=== PATIENT | male | born 1970 | race Caucasian/White ===

== ENCOUNTER 2021-09-28 10:53 | Outpatient (REF) | payer OTHER, SELFPAY ==
[2021-09-28 15:40] LABS: HCT 45.3 % (40.0-50.0); HGB 15.3 g/dL (13.5-17.5); MCH 30.7 pg (27.0-33.0); MCHC 33.8 % (32.0-36.0); MCV 91 fL (80-95); MPV 10.3 fL (8.0-11.0); Platelet Count 221 10^3/uL (130-400); RBC 4.98 10^6/uL (4.36-5.78); RDW 12.7 % (11.8-14.1); RDW-SD 42.1 fL; WBC 7.06 10^3/uL (4.4-10.8)
[2021-09-28 16:13] LABS: ALT 110 U/L (16-63); AST 58 U/L (15-37); Albumin 3.9 g/dL (3.4-5.0); Alkaline Phosphatase 66 U/L (46-116); Anion Gap 10.7 mmol/L (3-11); BUN 17 mg/dL (7-18); Bilirubin, Total 0.6 mg/dL (0.2-1.0); CO2 27.3 mmol/L (21.0-32.0); Calcium 9.6 mg/dL (8.5-10.1); Calculated LDL 197 mg/dL (<100); Chloride 100 mmol/L (98-107); Cholesterol 302 mg/dL (<200); Glucose 107 mg/dL (74-106); HDL Cholesterol 82 mg/dL (40-60); Potassium 4.3 mmol/L (3.5-5.1); Sodium 138 mmol/L (136-145); TSH (W/Ref FT4) 1.92 uIU/mL (0.36-3.74); Total Protein 7.9 g/dL (6.4-8.2); Triglyceride 115 mg/dL (<150)
[2021-09-28 16:27] LABS: Vitamin D 25 Total 19.1 ng/mL (30-100)
== END 2021-09-28 10:54 | disposition home or self-care (01) ==
LOC: NCHCN 10:53
PROVIDERS: Visit Provider Nurse Practitioner Family
DX: R53.83 Other fatigue (principal); E55.9 Vitamin D deficiency, unspecified; F10.20 Alcohol dependence, uncomplicated; F17.220 Nicotine dependence, chewing tobacco, uncomplicated; R06.83 Snoring
CPT/HCPCS: 80053; 80061; 82306; 85027; 84443

== ENCOUNTER 2022-09-19 10:14 | Outpatient (REF) | payer OTHER, SELFPAY ==
[2022-09-19 16:35] LABS: ALT 82 U/L (16-63); AST 48 U/L (15-37); Albumin 3.9 g/dL (3.4-5.0); Alkaline Phosphatase 71 U/L (46-116); Anion Gap 10.3 mmol/L (3-11); BUN 13 mg/dL (7-18); Bilirubin, Total 0.7 mg/dL (0.2-1.0); CO2 27.7 mmol/L (21.0-32.0); Calcium 9.1 mg/dL (8.5-10.1); Calculated LDL 192 mg/dL (<100); Chloride 103 mmol/L (98-107); Cholesterol 292 mg/dL (<200); Estimated GFR 91.69 (mL/min/1.73m2); Glucose 109 mg/dL (74-106); HDL Cholesterol 71 mg/dL (40-60); Potassium 4.4 mmol/L (3.5-5.1); Sodium 141 mmol/L (136-145); Total Protein 7.7 g/dL (6.4-8.2); Triglyceride 146 mg/dL (<150)
[2022-09-19 17:25] LABS: GGT 102 U/L (15-85)
== END 2022-09-19 10:15 | disposition home or self-care (01) ==
LOC: NCHCN 10:14
PROVIDERS: Visit Provider Nurse Practitioner Family
DX: Z00.00 Encounter for general adult medical examination without abnormal findings (principal); E78.5 Hyperlipidemia, unspecified; R79.89 Other specified abnormal findings of blood chemistry
CPT/HCPCS: 80053; 80061; 82977

== ENCOUNTER 2023-05-29 12:33 | Outpatient (REF) | payer OTHER, SELFPAY ==
[2023-05-29 15:24] LABS: Abs Immature Grans 0.03 10^3/uL (0.0-0.06); Absolute Basophil Count 0.06 10^3/uL (0.0-0.2); Absolute Eosinophil Count 0.08 10^3/uL (0.0-0.7); Absolute Lymphocyte Count 1.82 10^3/uL (1.2-3.4); Absolute Monocyte Count 0.64 10^3/uL (0.1-0.8); Absolute Neutrophil Count 5.09 10^3/uL (1.2-6.7); Basophils % 0.8; HCT 45.9 % (40.0-50.0); HGB 15.4 g/dL (13.5-17.5); Immature Grans % 0.4; Lymphocytes % 23.6; MCH 30.3 pg (27.0-33.0); MCHC 33.6 % (32.0-36.0); MCV 90 fL (80-95); MPV 9.9 fL (8.0-11.0); Monocytes % 8.3; Neutrophils % 65.9; Platelet Count 252 10^3/uL (130-400); RBC 5.09 10^6/uL (4.36-5.78); RDW 12.1 % (11.8-14.1); RDW-SD 40.3 fL; WBC 7.72 10^3/uL (4.4-10.8)
[2023-05-29 15:50] LABS: ALT 54 U/L (16-63); AST 31 U/L (15-37); Albumin 3.9 g/dL (3.4-5.0); Alkaline Phosphatase 67 U/L (46-116); Anion Gap 10.9 mmol/L (3-11); BUN 17 mg/dL (7-18); Bilirubin, Total 0.6 mg/dL (0.2-1.0); CO2 26.1 mmol/L (21.0-32.0); CREATININE 1.1 mg/dL (0.70-1.30); Calcium 9.5 mg/dL (8.5-10.1); Calculated LDL 179 mg/dL (<100); Chloride 104 mmol/L (98-107); Cholesterol 271 mg/dL (<200); Estimated GFR 81.28 (mL/min/1.73m2); Glucose 118 mg/dL (74-106); HDL Cholesterol 75 mg/dL (40-60); Potassium 4.5 mmol/L (3.5-5.1); Sodium 141 mmol/L (136-145); Triglyceride 85 mg/dL (<150)
[2023-05-30 09:17] LABS: Lyme Ab w Rflx to Lyme Confirm Negative (Negative)
== END 2023-05-29 12:34 | disposition home or self-care (01) ==
LOC: NCHCN 12:33
PROVIDERS: Referring Provider Nurse Practitioner Family; Visit Provider Nurse Practitioner Family
DX: E78.5 Hyperlipidemia, unspecified (principal); M25.59 Pain in other specified joint
CPT/HCPCS: 80053; 80061; 85025; 86618

== ENCOUNTER 2024-12-11 08:14 | Day surgery (SDC) | payer OTHER, SELFPAY ==
--- NOTE | 2024-12-10 13:45 | W.PM.DSUDISC ---
Date of service: 12/11/24 Discharge Plan Disposition Patient Disposition: Home Condition: Good Discharge Details Reason For Visit: Screening colonoscopy Attending Provider: Alfonso Horvath Primary Care Provider: JESIKA CAMP Home Meds and New Rx's Prescriptions: Continued Skyrizi 150 mg/mL syringe 150 mg subcut Q12W Discontinued bisacodyl [Dulcolax (bisacodyl)] 5 mg tablet,delayed release (DR/EC) 5 mg PO ONCE Qty: 4 0RF Rx Instructions: Take per colonoscopy instructions provided by ordering providers office polyethylene glycol 3350 17 gram/dose powder 17 g PO ONCE Qty: 238 0RF Rx Instructions: Take per colonoscopy instructions provided by ordering providers office Discharge Instructions Instructions: Colon polyps, Diverticulosis Additional Instructions: Moe, it was great meeting you today. I hope you are comfortable through the procedure and feel well as you transition home. Things went very smoothly. Your prep was outstanding, and I could see everything fine. I did find, and removed, 2 polyps today. These are both quite small, and to the naked eye there is nothing to worry about year. As a mention, I removed both of these and I will send them both to the pathologist for them to review. The pathology report will take about a week or 2 to get back. Once my office has the details of that, I will be in touch with recommendations for future colonoscopies. Incidentally, you also have a little bit of diverticulosis. Diverticula are little weak spots in the muscular layer of the colon wall. These cause a little pockets or pouches to form. Those are called diverticulum. These can get infected or inflamed and cause pain. However, most patients I perform colonoscopies and have them, and are never at all bothered by them. I hope yours never bother you. Have attached a little bit of information here about diverticulosis as well as colon rectal polyps. If you need anything or have any questions at all, please do not hesitate to ask. Otherwise, my office will be in touch once we have the report. 1. If tolerated, consume a soft, low fiber diet for 1-2 days. 2[address] Do not drive, drink alcohol, operate machinery, make critical decisions, or do activities that require coordination or balance for 24 hours. 3. Because air was put into your colon during the procedure, expelling air from your rectum (passing gas or farting) is normal. 4. You may not have a bowel movement for 1-3 days because of the colonoscopy prep. This is normal. 5. Go directly to the emergency room if you notice any of the following: Develop chills (warm to touch), or if you have a thermometer and your temperature is above 101 Difficulty breathing or difficultly swallowing Persistent vomiting Severe abdominal pain, other than gas cramps Severe chest pain Black, tarry stools Any bleeding ? exceeding one tablespoon 6. Call your physician if the site where your intravenous was started becomes red, swollen, painful, and warm to touch. 7. Your physician has reviewed your pre-procedure medications. Please continue to take those medications as previously ordered. You will be given specific information/education regarding any changes to your medications before leaving. Activity:: Activity as Tolerated Diet:: As Tolerated Discharge Orders Discharge Orders: Discharge Order (Routine); Ordered 12/10/24 Ordered By: Alfonso Horvath DS: Diagnosis Discharge Diagnosis (1) Encounter for screening colonoscopy: Status: Acute
--- NOTE | 2024-12-10 13:46 | W.COLOREPORT ---
Date of service: 12/11/24 Time of Service: 10:51 Colonoscopy Report Date of procedure: 12/11/24 Pre-op diagnosis general: Screening colonoscopy Post-op diagnosis procedure note: other (Colon polyps, diverticulosis) Procedure: Colonoscopy with polypectomy Surgeon: Alfonso Horvath Anesthesia Type: General:No Airway Estimated blood loss (mL): 5 Pathology: other ( 0.25 cm flat polyp at 65 cm, 0.25 cm flat polyp at 45 cm) Complications: None Disposition: same day Indications: Moe is a 54-year-old male who needs a screening colonoscopy Prep: Miralax/Dulcolax Procedure Start Time: 10:16 Procedure End Time: 10:37 Retraction Time: 14 Findings: Sigmoid diverticulosis, 0.25 cm flat polyp at 65 cm, 0.25 cm flat polyp at 45 cm Procedure Description: After the induction of pain at its anesthesia, and with the patient in left lateral decubitus position, I began by performing an external anorectal exam.? Perineum and skin were normal, as was the anal verge.? There was no evidence of external hemorrhoids.? Next, I performed a digital rectal exam.? I did not appreciate any abnormal findings.? Next, I advanced a colonoscope into the rectal vault.? I performed retroflexion.? This appeared normal.? Using irrigation, I then advanced the colonoscope beyond the rectal folds and into the sigmoid colon before advancing towards the cecum. The scope was noted to be in the cecum by identification of the ileocecal valve and appendiceal orifice.? I then began withdrawing the colonoscope using repeated irrigation as necessary for full evaluation of the colonic mucosa. ?Around 65 cm from the anal verge was a 0.25 cm flat polyp. This was removed with cold forcep polypectomy. There was minimal bleeding. Similarly, another 0.25 cm flat polyp was found around 45 cm past the anal verge. This was also removed with cold forceps without any issues. There were some occasional narrow mouth sigmoid diverticula. Once the scope was withdrawn to the level of the rectum, great care was taken to examine portions of the rectal folds.? Finally, the scope was withdrawn and the patient was brought to the same-day surgery recovery unit as the anesthetic wore off. ?The findings and instructions were shared with the patient prior to discharge. [place] Bowel Prep [place] Bowel Prep Right Colon: 3 Left Colon: 3 Transverse Colon: 3 Total Score: 9
[2024-12-11 08:18] VITALS: BP 149/93; PULSE 70; RESP 18; TEMP 36.2; O2SAT 95
[2024-12-11 08:42] VITALS: BP 149/93; PULSE 70; RESP 18; TEMP 36.2; O2SAT 95
[2024-12-11] MEDS: Lactated Ringers 1,000 ML 80 ML IV (08:49)
--- NOTE | 2024-12-11 09:31 | W.ANESPRE ---
General Info Date of Service Date Performed: 12/11/24 Height: 5 ft 7 in Weight: 108.9 kg Body Mass Index (BMI): 37.5 Surgical Procedure: Operation Date: 12/11/24 10:05 Proposed Procedure Side Surgeon p Josephine Horvath MD Meds Allergies and Home Medications Allergies Allergy/AdvReac Type Severity Reaction Status Date / Time acitretin (From Soriatane) Allergy Unknown Other (See Verified 12/11/24 08:37 Comment) Home Medication ?Medication ?Instructions ?Recorded risankizumab-rzaa 150 mg/mL 150 mg subcut Q12W 09/02/24 subcutaneous syringe (Skyrizi) Current Visit Medications: Current Medications Generic Name Dose Route Start Last Admin Trade Name Freq PRN Reason Stop Dose Admin Ringer's Solution 1,000 mls @ 80 mls/hr 12/11/24 06:00 12/11/24 08:49 IV 12/11/24 23:59 80 mls/hr INFUSION KEYON Administration IV Miscellaneous Supplies 1 each 12/11/24 06:00 Iv Access IV 12/11/24 23:59 DIRECTED KEYON Sodium Chloride 0 ml 12/11/24 06:00 Normal Saline Flush 10 Ml Syr IV 12/11/24 23:59 PRN PRN Sodium Chloride 0 ml 12/11/24 06:00 Normal Saline 10 Ml Vial IJ 12/11/24 23:59 DIRECTED PRN Sterile Water 0 ml 12/11/24 06:00 Water,Injection,Sterile 10 Ml Vial IJ 12/11/24 23:59 DIRECTED PRN PFSH Active Problems Active Problems: Problem Status Onset Code Encounter for screening colonoscopy Acute Z12.11 Tremor Acute R25.1 Psoriasis Chronic L40.9 Medical History Medical History Family history of thyroid cancer father Abnormal liver function test Vitamin D deficiency Multiple joint pain Seasonal allergic rhinitis Hyperlipidemia Alcohol dependence Snoring Fatigue Heartburn Chews tobacco DVT, lower extremity Tobacco Smoking/Tobacco Use Status: Current every day Tobacco Type: smokeless tobacco Alcohol Alcohol Intake: current Alcohol intake frequency: 3 or more drinks per day Alcohol type: hard liquor Substance Use Substance use: Rarely Substance use type: marijuana Details: Gummies at [facility] Vital Signs and Lab Results Vital Signs Most Recent Vital Signs in EMR: Most Recent Vital Signs Temp Pulse Resp BP Pulse Ox 36.2 C L 70 18 149/93 H 95 12/11/24 08:42 12/11/24 08:42 12/11/24 08:42 12/11/24 08:42 12/11/24 08:42 Anesthesia Assessment and Plan Anesthesia History Personal History: Unknown Anesthesia History Family History: No Family History of Anesthesia Complications Exercise Tolerance Exercise Tolerance: Metabolic Equivalents>4 Pertinent Negatives Pertinent Negatives: No Major Cardiovascular Symptoms or Complaints, No Major Pulmonary Symptoms or Complaints and No History of CVA/TIA Cardiac & Pulmonary Exam Cardiac Exam: Normal S1/S2 Heart Sounds Pulmonary Exam: Clear Bilateral Breath Sounds Implantable Cardiac Device Does patient have a Pacemaker or an ICD?: No Airway Exam Known Difficult Airway: No Mallampati Class: 3 Mouth Opening: Normal (> 3cm) Thyromental Distance: Greater than 3 cm Neck Range of Motion: Full ROM Neck Circumference: Thick Teeth Condition: Normal Dentition ASA Classification ASA Score: ASA 2 Emergency Case?: No NPO Status NPO Status: NPO Clears >2 hours, Solids >8 hours Anesthesia Plan Resuscitation Status: Full Code Anesthesia Technique: General Anesthesia Airway Planned: Natural Airway Monitors Used: Standard Monitors
[2024-12-11 09:32] VITALS: BMI 37.5
--- NOTE | 2024-12-11 10:30 | BOWEL_PTH ---
PATIENT: Moe Mcdonald LOC: TE U#:[id number] AGE/SX: 54/M ROOM: RE12/11/[address]: Alfonso Horvath MD : [id number] BED: DIS: 12/11/2024 SPEC #: [id number] RECD: 12/11/24 11:13 STATUS: SUGEY RE #: [id number] ADRIAN: 12/11/24 10:[address]: Alfonso Horvath DEPT: Surgical Specimen RECD BY: Aleyda Gonsales ENTERED: 12/11/24 11:15 SP TYPE: Bowel OTHR DR: JESIKA CAMP, STIVEN Tissues: 1 - BIOPSY BOWEL 2 - BIOPSY BOWEL Procedures: GROSS AND MICRO LEVEL 4 Comments: [id number]
[2024-12-11 10:40] VITALS: BP 147/76; PULSE 79; RESP 18; TEMP 36.6; O2SAT 95
--- NOTE | 2024-12-11 10:47 | W.ANESPOSTOP ---
Postoperative Evaluation Date, Time and Location Date Performed: 12/11/24 Time Performed: 10:47 Patient Location: Day Surgery Unit Vital Signs Most Recent Imported Vital Signs: Most Recent Vital Signs Temp Pulse Resp BP Pulse Ox 36.2 C L 70 18 149/93 H 95 12/11/24 08:42 12/11/24 08:42 12/11/24 08:42 12/11/24 08:42 12/11/24 08:42 Assessment Mental Status: Awake (Alert & Oriented to Patient Baseline) Airway and Respiratory Function: Patent airway with normal (patient baseline) respiratory exam Cardiovascular Function: Hemodynamically Stable Hydration Status: Adequately Hydrated Nausea & Vomiting: No Nausea or Vomiting Pain: Pt. Denies Any Pain Peripheral Nerve Block: Patient did not receive a nerve block
[2024-12-11 11:10] VITALS: BP 129/95; PULSE 53; RESP 16; TEMP 36.9; O2SAT 97
== END 2024-12-11 11:17 | disposition home or self-care (01) ==
LOC: SUR 08:14
PROVIDERS: PCP Nurse Practitioner Family; Visit Provider Surgery
PROC: 0DJD8ZZ Inspection of Lower Intestinal Tract, Via Natural or Artificial Opening Endoscopic (ICD-10-PCS; CPT 45378; principal; 2024-12-11 10:00)
DX: Z12.11 Encounter for screening for malignant neoplasm of colon (principal); D12.4 Benign neoplasm of descending colon; K57.30 Diverticulosis of large intestine without perforation or abscess without bleeding
CPT/HCPCS: 45380; 88305; J2704